=== PATIENT | male | born 2000 | race African-American/Black ===

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

== ENCOUNTER 2020-07-02 14:20 | Emergency (ER) | payer MEDICAID ==
[2020-07-02 14:26] VITALS: BP 133/68
[2020-07-02] MEDS ORDERED: IBUPROFEN 600 MG TABLET PO ONE (14:30)
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
== END 2020-07-02 15:20 | disposition home or self-care (01) ==
LOC: ER 14:20
DX: S89.91XA Unspecified injury of right lower leg, initial encounter (principal); M25.561 Pain in right knee; W22.8XXA Striking against or struck by other objects, initial encounter
CPT/HCPCS: 99283; 73564; J3490